=== PATIENT | male | born 1950 | race Caucasian/White ===

== ENCOUNTER 2019-09-30 13:42 | Emergency (ER) | payer MEDICARE ==
[~2019-09-30] VITALS: Ht 188 cm; Wt 122.5 kg
[2019-09-30 15:17] LABS: ABSOLUTE EOSINOPHILS 0.1 thou/uL (0.0-0.7); ABSOLUTE LYMPHOCYTES 1.9 thou/uL (0.8-5.3); ABSOLUTE MONOCYTES 0.6 thou/uL (0.0-1.2); ABSOLUTE NEUTROPHILS 6.6 thou/uL (1.6-8.1); BASOPHILS 0.4 %; EOSINOPHILS 1.1 %; HEMATOCRIT 43.9 % (42.0-52.0); HEMOGLOBIN 14.7 gm/dL (14.0-18.0); LYMPHOCYTES 20.5 %; MCH 27.7 pg (26.0-34.0); MCHC 33.4 g/dL (28.0-37.0); MCV 82.9 fL (80.0-100.0); MONOCYTES 6.5 %; MPV 7.7 fl. (7.2-11.1); NUCLEATED RBCS 0 /100WBC; PLATELET COUNT* 227 thou/uL (150-400); POLYS 71.5 %; RDW-CV 14.7 % (10.5-14.5); WBC 9.3 thou/uL (4.0-11.0)
[2019-09-30 15:29] LABS: CALCIUM 8.7 mg/dL (8.5-10.1); CREATININE 1.5 mg/dL (0.6-1.3); POTASSIUM 4.4 mmol/L (3.5-5.1)
[2019-09-30 15:34] LABS: ALBUMIN 3.2 g/dL (3.4-5.0); TOTAL BILIRUBIN 0.4 mg/dL (<0.1-1.0); TOTAL PROTEIN 8.3 g/dL (6.4-8.2)
[2019-09-30] MEDS ORDERED: KEFLEX500 M1 PO (15:37)
[2019-09-30 16:17] VITALS: BP 152/84
== END 2019-09-30 16:18 | disposition left against medical advice (07) ==
LOC: M.ERS 13:42
PROVIDERS: Emergency Medicine Emergency Medical Services
DX: S90.821A Blister (nonthermal), right foot, initial encounter (principal); E11.9 Type 2 diabetes mellitus without complications; X58.XXXA Exposure to other specified factors, initial encounter; Y93.89 Activity, other specified; Y92.89 Other specified places as the place of occurrence of the external cause; Y99.8 Other external cause status

== ENCOUNTER 2020-06-24 16:46 | Inpatient (IN) | payer OTHER ==
[~2020-06-24] VITALS: Ht 188 cm; Wt 129.0 kg
--- NOTE | ~2020-06-24 | EMS ---
[address] [place] [address] EMS Patient Care Report Name: ISMA CASSIDY Room: [address] [facility]#: [id number] Admission: 06/24/20 Attend Phys: Gabriella Colin MD Discharge: Date of : 48 Report #: [id number] THIS REPORT FOR: //name// Report Transmitted: 06/25/2020 01:18 EMS Care Summary [facility] Incident [id number] @ 06/24/2020 15:50 Incident Location [address] [place] [address] Patient Isma Cassidy Male, 70 Years 1950 Patient Address [address] [place] [address] Patient History Endocrine Condition - Other, Patient Allergies No known allergies, Chief Complaint Diabetes related symptoms Disposition Transported No Lights/Ideal Dispatch Reason Diabetic Problem Transported To [facility] Narrative [facility] 308 dispatched to urgent care for diabetic. Arrived on scene at [facility]. Patient is found in the clinic area with staff and neighbor at his side. Per staff report, patient presented to clinic post fall with skin tear to his right upper arm. Patient was worked up and found to be hyperglycemic. Patient is a diabetic and has been non-compliant for approximately five years. Upon arrival to the patient, he is alert, oriented with no immediate life-threats noted. [address] [place] [address] EMS Patient Care Report Name: ISMA CASSIDY Room: [address] [facility]#: [id number] Admission: 06/24/20 Attend Phys: Gabriella Colin MD Discharge: Date of : 48 Report #: [id number] Patient is seated on a electric cart. Patient is noted to be unkempt. Per neighbor, patient lives at home with his disabled daughter who the neighbor takes care of. She found patient on the ground in the yard and brought him to the clinic. Patient denies head, neck, back and chest pain. He states he fell because he lost his balance. He normally ambulates using a cane and did not have this with him. Patient denies striking head, no loss of consciousness and takes no medications, including blood thinners. Patient denies pain in his injured arm. Initially patient did not want to be transported. He did agree and requests [facility]. Patient was assisted in backing the cart out of the exam room and next to the cot. Patient was able to stand, turn and sit on cot with assistance. Patient is noted to be soiled. Patient was covered with a blanket, secured via safety straps plus side rails, taken to ambulance and loaded without incident. Vitals, 4-lead, 12-lead, IV access with blood glucose level obtained. Patient continues to deny pain. Arm wound dressed. Patient denies weakness and states he uses his cane to ambulate. He denies any infection, rashes or wounds. Patient admits to increased urination. He states he would urinate every 20 minutes. Patient also admits to some diarrhea. He states he has not been eating much and primarily drinks Dr. Soto. Patient was asked if he felt like he needed more help at home and he stated he did. Patient advised the information will be passed onto the RN. Patient needed to urinate and attempt made to provide him with a urinal. Patient was unable to hold the urine and soiled himself further. Patient assessment as documented. Patient remained monitored throughout transport with supportive care provided. At destination, all monitoring removed. Patient was unloaded and taken to room four. Cor brought to side of facility bed, patient unsecured, allowing patient to self transfer without incident. Report to RN and signature obtained. Signature obtained from patient. Patient in possession of his cell phone. Care transferred and call cleared Initial Vitals @15:53Pain: 0/10, @16:40Pain: 0/10, @16:10SpO2: 94, @16:16SpO2: 94, @16:32SpO2: 94, @16:43SpO2: 94, @16:07 @16:00Temp: 96.98F, @16:10P: 109,R: 14,BP: 178/73,Revised Trauma: 8, @16:16P: 107,R: 16,BP: 158/67,Revised Trauma: 8, @16:32P: 104,R: 16,BP: 128/86,Revised Trauma: 8, @16:43P: 109,R: 18,BP: 133/80,Revised Trauma: 8, @16:57TgMP6: 44, @16:14TbNZ7: 44, @16:62DaUS1: 45, @16:60AvMV0: 41, [facility] [address] [facility] [place] [address] EMS Patient Care Report Name: ISMA CASSIDY Room: [address] [facility]#: [id number] Admission: 06/24/20 Attend Phys: Gabriella Colin MD Discharge: Date of : 48 Report #: [id number] @16:35DzSJ3: 42, @16:22NqFX3: 43, @16:61QhFR9: 41, @16:03VoXP0: 46, @16:90GgVB0: 44, @16:70SzYT4: 44, @16:97JrNY2: 44, @16:40FgSG7: 44, @16:94XjTX2: 41, @16:10GCS: 15, @16:16GCS: 15, @16:32GCS: 15, @16:43GCS: 15, @15:53 @16:14Glucose: -2, Assessments @15:53MENTAL:SKIN:HEENT:LUNG SOUNDS:ABDOMEN:PELVIS//GI:EXTREMITIES:PULSE:NEURO: Impression Diabetic Hyperglycemia Procedures @16:77MGCO2 digital capnographyResponse: UnchangedSucceeded@16:94APFN3 digital capnographyResponse: UnchangedSucceeded@16:16ALBI3 digital capnographyResponse: UnchangedSucceeded@16:08DTVX2 digital capnographyResponse: UnchangedSucceeded@16:93LVVN7 digital capnographyResponse: UnchangedSucceeded@16:59ACAI1 digital capnographyResponse: UnchangedSucceeded@16:85MNVX0 digital capnographyResponse: UnchangedSucceeded@16:21VECE2 digital capnographyResponse: UnchangedSucceeded@16:68ZOLQ8 digital capnographyResponse: UnchangedSucceeded@16:93QRPL4 digital capnographyResponse: UnchangedSucceeded@16:79TZKX1 digital capnographyResponse: UnchangedSucceeded@16:69TKLT8 digital capnographyResponse: UnchangedSucceeded@16:29KPMQ2 digital capnographyResponse: UnchangedSucceeded@16:0712-Lead ECGResponse: UnchangedSucceeded Timeline 15:50,Call Received 15:50,Dispatch Notified 15:50,Psap Call 15:50,Dispatched 15:50,En Route 15:52,On Scene 15:53,[place] [address] EMS Patient Care Report Name: ISMA CASSIDY Room: [address] IN [facility].#: [id number] Admission: 06/24/20 Attend Phys: Gabriella Colin MD Discharge: Date of : 48 Report #: [id number] 15:53,BP: / M,PULSE: ,RR: R,SPO2: Ox,ETCO2: ,BG: ,PAIN: 0,GCS: , 15:53,BP: / M,PULSE: ,RR: R,SPO2: Ox,ETCO2: ,BG: ,PAIN: ,GCS: , 16:00,BP: / M,PULSE: ,RR: R,SPO2: Ox,ETCO2: ,BG: ,PAIN: ,GCS: , 16:07,12-Lead ECG,Response: UnchangedSucceeded, 16:07,BP: / M,PULSE: ,RR: R,SPO2: Ox,ETCO2: ,BG: ,PAIN: ,GCS: , 16:09,ETCO2 digital capnography,Response: UnchangedSucceeded, 16:09,BP: / M,PULSE: ,RR: R,SPO2: Ox,ETCO2: 44 ,BG: ,PAIN: ,GCS: , 16:10,ETCO2 digital capnography,Response: UnchangedSucceeded, 16:10,BP: / M,PULSE: ,RR: R,SPO2: 94 Ox,ETCO2: ,BG: ,PAIN: ,GCS: , 16:10,BP: 178/73 M,PULSE: 109,RR: 14 R,SPO2: Ox,ETCO2: ,BG: ,PAIN: ,GCS: , 16:10,BP: / M,PULSE: ,RR: R,SPO2: Ox,ETCO2: 44 ,BG: ,PAIN: ,GCS: , 16:10,BP: / M,PULSE: ,RR: R,SPO2: Ox,ETCO2: ,BG: ,PAIN: ,GCS: 15, 16:13,ETCO2 digital capnography,Response: UnchangedSucceeded, 16:13,BP: / M,PULSE: ,RR: R,SPO2: Ox,ETCO2: 45 ,BG: ,PAIN: ,GCS: , 16:14,ETCO2 digital capnography,Response: UnchangedSucceeded, 16:14,BP: / M,PULSE: ,RR: R,SPO2: Ox,ETCO2: 41 ,BG: ,PAIN: ,GCS: , 16:14,BP: / M,PULSE: ,RR: R,SPO2: Ox,ETCO2: ,BG: -2,PAIN: ,GCS: , 16:16,ETCO2 digital capnography,Response: UnchangedSucceeded, 16:16,BP: / M,PULSE: ,RR: R,SPO2: 94 Ox,ETCO2: ,BG: ,PAIN: ,GCS: , 16:16,BP: 158/67 M,PULSE: 107,RR: 16 R,SPO2: Ox,ETCO2: ,BG: ,PAIN: ,GCS: , 16:16,BP: / M,PULSE: ,RR: R,SPO2: Ox,ETCO2: 42 ,BG: ,PAIN: ,GCS: , 16:16,BP: / M,PULSE: ,RR: R,SPO2: Ox,ETCO2: ,BG: ,PAIN: ,GCS: 15, 16:18,Depart Scene 16:19,ETCO2 digital capnography,Response: UnchangedSucceeded, 16:19,BP: / M,PULSE: ,RR: R,SPO2: Ox,ETCO2: 43 ,BG: ,PAIN: ,GCS: , 16:24,ETCO2 digital capnography,Response: UnchangedSucceeded, 16:24,BP: / M,PULSE: ,RR: R,SPO2: Ox,ETCO2: 41 ,BG: ,PAIN: ,GCS: , 16:29,ETCO2 digital capnography,Response: UnchangedSucceeded, 16:29,BP: / M,PULSE: ,RR: R,SPO2: Ox,ETCO2: 46 ,BG: ,PAIN: ,GCS: , 16:32,ETCO2 digital capnography,Response: UnchangedSucceeded, 16:32,BP: / M,PULSE: ,RR: R,SPO2: 94 Ox,ETCO2: ,BG: ,PAIN: ,GCS: , 16:32,BP: 128/86 M,PULSE: 104,RR: 16 R,SPO2: Ox,ETCO2: ,BG: ,PAIN: ,GCS: , 16:32,BP: / M,PULSE: ,RR: R,SPO2: Ox,ETCO2: 44 ,BG: ,PAIN: ,GCS: , 16:32,BP: / M,PULSE: ,RR: R,SPO2: Ox,ETCO2: ,BG: ,PAIN: ,GCS: 15, 16:35,ETCO2 digital capnography,Response: UnchangedSucceeded, 16:35,BP: / M,PULSE: ,RR: R,SPO2: Ox,ETCO2: 44 ,BG: ,PAIN: ,GCS: , 16:40,ETCO2 digital capnography,Response: UnchangedSucceeded, 16:40,BP: / M,PULSE: ,RR: R,SPO2: Ox,ETCO2: ,BG: ,PAIN: 0,GCS: , 16:40,BP: / M,PULSE: ,RR: R,SPO2: Ox,ETCO2: 44 ,BG: ,PAIN: ,GCS: , 16:42,ETCO2 digital capnography,Response: UnchangedSucceeded, 16:42,BP: / M,PULSE: ,RR: R,SPO2: Ox,ETCO2: 44 ,BG: ,PAIN: ,GCS: , 16:43,ETCO2 digital capnography,Response: UnchangedSucceeded, 16:43,BP: / M,PULSE: ,RR: R,SPO2: 94 Ox,ETCO2: ,BG: ,PAIN: ,GCS: , 16:43,BP: 133/80 M,PULSE: 109,RR: 18 R,SPO2: Ox,ETCO2: ,BG: ,PAIN: ,GCS: , 16:43,BP: / M,PULSE: ,RR: R,SPO2: Ox,ETCO2: 41 ,BG: ,PAIN: ,GCS: , 16:43,BP: / M,PULSE: ,RR: R,SPO2: Ox,ETCO2: ,BG: ,PAIN: ,GCS: 15, [place] [address] EMS Patient Care Report Name: ISMA CASSIDY Michael Room: [address] [facility]#: [id number] Admission: 06/24/20 Attend Phys: Gabriella Colin MD Discharge: Date of : 48 Report #: [id number] 16:43,At Destination 17:10,Call Closed Disclaimer v1.1 Copyright 2020 [employer] This EMS Care Summary contains data elements from the applicable legal record (which may be displayed differently). It is designed to provide pertinent information for the following purposes: continuity of care, clinical quality, and state data reporting. The complete legal record is available to ED staff and administrators of the receiving hospital in ES's Patient Tracker. All data is provided "as is."
[~2020-06-24 16:46] MED LIST: KEFLEX500 M1 PO
[2020-06-24 16:49] VITALS: BP 174/72
[2020-06-24 17:44] LABS: HEMATOCRIT 45.3 % (42.0-52.0); HEMOGLOBIN 13.9 gm/dL (14.0-18.0); MCH 27.3 pg (26.0-34.0); MCHC 30.7 g/dL (28.0-37.0); MPV 9.7 fl. (7.2-11.1); NUCLEATED RBCS 0 /100WBC; PLATELET COUNT* 189 thou/uL (150-400); WBC 13.7 thou/uL (4.0-11.0)
[2020-06-24 17:55] LABS: CALCIUM 8.9 mg/dL (8.5-10.1); CREATININE 2.6 mg/dL (0.6-1.3)
[2020-06-24 17:56] LABS: TOTAL BILIRUBIN 0.6 mg/dL (<0.1-1.0); TOTAL PROTEIN 8.5 g/dL (6.4-8.2)
[2020-06-24 18:07] LABS: ABSOLUTE LYMPHOCYTES 1.1 thou/uL (0.8-5.3); ABSOLUTE MONOCYTES 0.7 thou/uL (0.0-1.2); ABSOLUTE NEUTROPHILS 11.9 thou/uL (1.6-8.1)
[2020-06-24 18:08] LABS: PLATELET ESTIMATE ADEQUATE
[2020-06-24 18:10] LABS: URINE BILIRUBIN NEGATIVE (Negative); URINE BLOOD 2+ (Negative); URINE COLOR YELLOW; URINE GLUCOSE-RANDOM 3+ (Negative); URINE KETONES NEGATIVE (Negative); URINE LEUKOCYTES-REFLEX NEGATIVE (Negative); URINE NITRITE-REFLEX NEGATIVE (Negative); URINE PROTEIN NEGATIVE (Negative); URINE SPECIFIC GRAVITY <= 1.005 (1.005-1.030); URINE UROBILINOGEN 0.2 E.U./dl (0.2-1.0)
[2020-06-24 18:11] LABS: URINE CLARITY HAZY
[2020-06-24 18:28] LABS: BACTERIA-REFLEX 1-9 Few /HPF (None Seen); CASTS None Seen /LPF (None Seen); CRYSTALS None Seen /LPF (None Seen); SQUAMOUS 4-10 Moderate /LPF (0-3); URINE RBC 0-2 Rare /HPF (0-2); URINE WBC-REFLEX 0-5 Rare /HPF (0-5); YEAST-REFLEX Present (None Seen)
[2020-06-24 23:50] VITALS: BP 111/60
[2020-06-25] VITALS (17 sets, daily range): BP systolic 107–148; BP diastolic 46–110
[2020-06-25 02:24] LABS: HEMATOCRIT 40.4 % (42.0-52.0); HEMOGLOBIN 13.1 gm/dL (14.0-18.0); MCH 27.3 pg (26.0-34.0); MCHC 32.3 g/dL (28.0-37.0); MCV 84.4 fL (80.0-100.0); RBC 4.79 mil/uL (4.50-6.00); RDW-CV 13.7 % (10.5-14.5); WBC 12.8 thou/uL (4.0-11.0)
[2020-06-25 02:35] LABS: CALCIUM 8.7 mg/dL (8.5-10.1); CREATININE 2.3 mg/dL (0.6-1.3)
[2020-06-25 02:45] LABS: ALBUMIN 2.6 g/dL (3.4-5.0); CALCIUM 8.5 mg/dL (8.5-10.1); CREATININE 2.2 mg/dL (0.6-1.3); PHOSPHORUS* 2.7 mg/dL (2.5-4.9)
[2020-06-25 08:16] LABS: CALCIUM 8.5 mg/dL (8.5-10.1); CREATININE 2.3 mg/dL (0.6-1.3); MAGNESIUM 2.1 mg/dL (1.8-2.4); PHOSPHORUS* 3.4 mg/dL (2.5-4.9); POTASSIUM 5.5 mmol/L (3.5-5.1)
[2020-06-25 08:18] LABS: ALBUMIN 2.3 g/dL (3.4-5.0); CALCIUM 7.8 mg/dL (8.5-10.1); CREATININE 1.8 mg/dL (0.6-1.3); MAGNESIUM 1.9 mg/dL (1.8-2.4); PHOSPHORUS* 2.6 mg/dL (2.5-4.9); POTASSIUM 3.7 mmol/L (3.5-5.1)
--- NOTE | 2020-06-25 09:02 | EKG ---
[place] [address] ELECTROCARDIOGRAM REPORT Name: WILBERT DUNN Room: [address] ADM IN .R.#: [id number] Admission: 06/24/20 Attend Phys: Gabriella Colin MD Discharge: Date of : 48 Date of Service: 06/24/201922 Report #: [id number] THIS REPORT FOR: //name// [facility] ED Test Date: 2020-06-24 Test Time: 19:23:31 Pat Name: WILBERT DUNN Department: Room: [address] Gender: M Cataract Lens Generator: : 1950 Requested By: Kathryn Schafer Order Number: [id number] Gladis MD: Norberto Coronel Measurements Intervals Bastian Rate: 106 P: 68 OR: 158 QRS: 2 QRSD: 104 T: 59 QT: 337 QTc: 448 Interpretive Statements Sinus tachycardia No previous ECG available for comparison Electronically Signed On 06-25-2020 9:02:39 CDT by Norberto Coronel [email or web address] <ELECTRONICALLY SIGNED> By: Norberto Coronel MD, [facility] 06/25/20901 22 22 Norberto Coronel MD, [facility] /EPI
--- NOTE | 2020-06-25 15:51 | NUR ---
ICU rounds: Pt admitted with a BS of 1270. On insulin gtt. Pt grumpy and agitated, unwilling to answer CM's questions. None of the Pt's contact numbers work, CM to attempt to assess tomorrow.
[2020-06-26 02:06] LABS: ESTIMATED AVERAGE GLUCOSE > 398 mg/dL (()); GLYCOHEMOGLOBIN (HGB A1C) > 15.5 % (4.8-5.6)
[2020-06-26 03:12] LABS: HEMATOCRIT 36.9 % (42.0-52.0); HEMOGLOBIN 11.9 gm/dL (14.0-18.0); MCH 27.2 pg (26.0-34.0); MCHC 32.2 g/dL (28.0-37.0); MCV 84.4 fL (80.0-100.0); MPV 8.1 fl. (7.2-11.1); RBC 4.37 mil/uL (4.50-6.00); RDW-CV 13.8 % (10.5-14.5); WBC 8.9 thou/uL (4.0-11.0)
[2020-06-26 03:21] LABS: CREATININE 1.7 mg/dL (0.6-1.3); POTASSIUM 4.4 mmol/L (3.5-5.1)
[2020-06-26 04:00] VITALS: BP 148/59
--- NOTE | 2020-06-26 04:17 | NUR ---
0345 PT FROM ICU VIA BED IN STABLE CONDITION. NO C/O OF PAIN OR SIGNS OF RESPIRATORY DISTRESS AT THIS TIME. ALL BELONGINGS INCLUDING PHONE, WALLET AND GLASSES SENT WITH PT.
--- NOTE | 2020-06-26 06:37 | NUR ---
NO ACUTE CHANGES THROUGHOUT SHIFT. SEE CHARTING FOR DETAILS. ALL ROUNDINGS COMPLETED, ALL NEEDS MET. FULL ASSESSMENT COMPLETED CHARTED. CALL LIGHT AND PERSONAL ITEMS IN REACH. BED LOCKED AND IN LOW POSITION. PT ARRIVED ON UNIT AT APPROX 0400.
[2020-06-26 08:00] VITALS: BP 117/75
[2020-06-26 12:00] VITALS: BP 132/75
--- NOTE | 2020-06-26 14:23 | NUR ---
Pt resides at home. Independent. No DME. No hx of HH or SNF. Fer[facility] BS today, anticipate dc tomorrow. [facility].
--- NOTE | 2020-06-26 15:41 | NUR ---
[facility] Nurse transition navigator bedside assessment note: Discussed HH with patient and the need to be compliant with Homebound and compliant with learning and caring for himself. He said he almost and he wants to get better because his daughter who lives with him is also sick and he needs to help her. Patient had no PCP, lives in [facility] did not want any dr. at . Made appointment for Wednesday at 1:[address] Edgar Theodore [phone]. Added PCP to medical records and faxed initial referral paperwork.
[2020-06-26 16:00] VITALS: BP 153/65
[2020-06-26 20:24] VITALS: BP 140/55
[2020-06-26 23:47] VITALS: BP 144/52
[2020-06-27 03:31] VITALS: BP 125/56
[2020-06-27 04:07] LABS: HEMATOCRIT 37.6 % (42.0-52.0); MCH 27.2 pg (26.0-34.0); MCV 85.1 fL (80.0-100.0); MPV 8.4 fl. (7.2-11.1); RBC 4.41 mil/uL (4.50-6.00); RDW-CV 13.7 % (10.5-14.5); WBC 7.2 thou/uL (4.0-11.0)
[2020-06-27 04:33] LABS: CALCIUM 8.2 mg/dL (8.5-10.1); CREATININE 1.6 mg/dL (0.6-1.3); POTASSIUM 3.8 mmol/L (3.5-5.1)
--- NOTE | 2020-06-27 06:42 | NUR ---
PT IS ABLE TO COMMUNICATE HIS NEEDS TO STAFF EFFECTIVELY. CURRENT PAIN MEDICATION REGIMEN HAS BEEN ADEQUATE FOR CONTROLLING HIS PAIN UP TO THIS TIME. QUIROZ HAS BEEN PATENT UP TO THIS TIME; HE DOES, AT TIMES, STATE THAT HE FEELS LIKE HE HAS TO GO, BUT FLUSHING THE CATH HELPS THAT FEELING SUBSIDE. WOUND CARE CONSULTED FOR GROIN DENUDATION; PICS TAKEN.
[2020-06-27 09:52] VITALS: BP 125/56
[2020-06-27] MEDS ORDERED: HUMALOG100 UNIT/1 SUBQ (10:36)
[2020-06-27] MEDS ORDERED: LANTUS SUBQ (10:36)
[2020-06-27 12:00] VITALS: BP 127/58
--- NOTE | 2020-06-27 13:25 | NUR ---
Pt discharged to home today, referral and HH orders faxed to [facility].
--- NOTE | 2020-06-27 16:18 | NUR ---
ASSUMED PT CARE AT 0730. ASSESSMENT COMPLETED, PT IS [id number] PERIODS OF CONFUSION. PT'S BRUNILDA AREA, SCROTUM AND PENIS ARE GAULDED. AREA CLEANED, PATTED DRY AND NYSTATIN POWDER APPLIED AND MOISTURE BARRIER ON SURROUNDING AREA, QUIROZ IS PATENT AND DRAINING LIGHT YELLOW URINE. VSS. MEDICATIONS ADMINISTERED ORDERED. [facility] ORDERS TO DISCHARGE PT TO HOME WITH DAUGHTER. DAUGHTER NOTIFIED.
--- NOTE | 2020-06-28 11:59 | NUR ---
CM received a call from the nurse with [facility], CM informed that when she arrived to admit the Pt to their HH service, Pt appeared to be under the influence of something, either a drug or etoh or both. Nurse also stated that Pt was belligerent and aggressive, they opted to not admit Pt to their service.
== END 2020-06-27 20:10 | disposition home health service (06) | DRG 637 ==
LOC: M.ERS 16:46 → M.TBA-ER 19:41 → M.ICU 19:41 → M.2W 06-26 03:50
PROVIDERS: Nurse Practitioner Family; ADMIT Family Medicine; ATTEND Family Medicine
DX: E11.00 Type 2 diabetes mellitus with hyperosmolarity without nonketotic hyperglycemic-hyperosmolar coma (NKHHC) (principal); N17.0 Acute kidney failure with tubular necrosis; E87.1 Hypo-osmolality and hyponatremia; E87.2 Acidosis; E11.65 Type 2 diabetes mellitus with hyperglycemia; E87.5 Hyperkalemia; I10 Essential (primary) hypertension; B37.2 Candidiasis of skin and nail; Z20.822 Contact with and (suspected) exposure to COVID-19; E66.01 Morbid (severe) obesity due to excess calories; Z68.36 Body mass index [BMI] 36.0-36.9, adult; Z91.14 Patient's other noncompliance with medication regimen